=== PATIENT | female | born 1940 | race Caucasian/White ===

== ENCOUNTER 2025-02-16 22:12 | Emergency (ER) | payer OTHER ==
[~2025-02-16] VITALS: Ht 167.6 cm; Wt 68.0 kg
[~2025-02-16 22:12] MED LIST: LEVO125T PO; METO25TA20 PO; WARF1TAB PO; WARF5TAB PO
[2025-02-16 22:20] VITALS: TEMP 98
[2025-02-16] MEDS ORDERED: ONDANSETRON 4 MG TAB.RAPDIS ONE (22:54)
[2025-02-16] MEDS ORDERED: MORPHINE SULFATE INJ 2 MG/ML DISP.SYRIN ONE (22:54)
[2025-02-16] MEDS: ONDANSETRON 4 MG TAB.RAPDIS PO ONE (22:57)
[2025-02-16] MEDS: MORPHINE SULFATE INJ 2 MG/ML DISP.SYRIN IM ONE (23:04)
[2025-02-16 23:11] LABS: PLATELET COUNT (AUTO) 237 K/uL (150-450); RED BLOOD CELL COUNT(AUTO) 4.10 MIL/uL (4.0-5.2); RED CELL DISTRIBUTION WIDTH 13.8 % (11.5-15.0); WHITE BLOOD COUNT (AUTO) 12.8 K/uL (4.3-11.0)
[2025-02-16 23:13] LABS: ERYTHROCYTE SEDIMENTATION RATE 7 MM/HR (0-30)
[2025-02-16 23:24] LABS: CALCIUM, SERUM 9.0 mg/dL (8.5-10.1); CREATININE 1.2 mg/dL (0.6-1.3); SODIUM SERUM 139.0 mmol/L (136-145); UREA NITROGEN, BLOOD 43.0 mg/dL (7-18)
[2025-02-16 23:29] LABS: ASPARTATE AMINOTRANSFERASE 14.0 U/L (15-37); INR 1.03 (0.91-1.10); TOTAL PROTEIN, SERUM 7.5 g/dL (6.4-8.2)
[2025-02-17 06:08] VITALS: BP 146/66; O2SAT 96
== END 2025-02-17 07:11 | disposition short-term general hospital (02) ==
LOC: ER 22:12
DX: M25.062 Hemarthrosis, left knee (principal); I10 Essential (primary) hypertension; E03.9 Hypothyroidism, unspecified; I25.10 Atherosclerotic heart disease of native coronary artery without angina pectoris; I48.91 Unspecified atrial fibrillation; Z79.01 Long term (current) use of anticoagulants; Z79.890 Hormone replacement therapy; Z79.899 Other long term (current) drug therapy; Z88.2 Allergy status to sulfonamides; Z88.7 Allergy status to serum and vaccine; Z88.8 Allergy status to other drugs, medicaments and biological substances; Z90.710 Acquired absence of both cervix and uterus; Z96.651 Presence of right artificial knee joint
CPT/HCPCS: 99285; 73700; 96372; 85025; 85610; 85730; 85652; 36415; 80053; Q0162; J2270